=== PATIENT | female | born 1960 | race Two or more races ===

== ENCOUNTER → 2024-12-17 | Outpatient (CLI) | payer MEDICAID, SELFPAY ==
--- NOTE | 2024-12-17 12:57 | XR_ITS ---
EXAMINATION: AP bilateral knees single view TECHNIQUE: AP standing bilateral knees single view Date and time: December 17, 2024 1340 hours INDICATIONS: Bilateral knee pain beginning 2013. FINDINGS: Significant osteopenia. Advanced narrowing lateral joint spaces bilaterally Moderate osteoarthritis medial joint spaces No fractures IMPRESSION: Advanced narrowing lateral joint spaces bilaterally
== END | disposition home or self-care (01) ==
PROVIDERS: PCP Physician Assistant; Referring Provider Orthopaedic Surgery; Visit Provider Orthopaedic Surgery
DX: M25.862 Other specified joint disorders, left knee (principal); M25.861 Other specified joint disorders, right knee
CPT/HCPCS: 73565

== ENCOUNTER 2025-02-20 12:05 | Observation (INO) | payer MEDICAID, SELFPAY ==
--- NOTE | 2025-02-19 11:33 | EKG_ITS ---
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
[2025-02-19 11:45] VITALS: BMI 30.6
[2025-02-19 12:34] LABS: Basophils # (Auto) 0.0 Thou/mm3 (0.0-0.2); Basophils % (Auto) 1 % (0-2.5); Eosinophils # (Auto) 0.3 Thou/mm3 (0.0-0.5); Eosinophils % (Auto) 4 % (0-10); Hematocrit 44.3 % (36.0-46.0); Hemoglobin 14.4 g/dL (12.0-16.0); Immature Granulocytes Auto 0.01 Thou/mm3 (0.00-0.00); Lymphocytes # (Auto) 2.3 Thou/mm3 (1.0-4.8); Lymphocytes % (Auto) 32 % (10-50); Mean Corpuscular HGB Conc 32.5 g/dl (31.0-37.0); Mean Corpuscular Hemoglobin 27.9 pg (25.0-35.0); Mean Corpuscular Volume 86 fL (80-100); Monocytes # (Auto) 0.6 Thou/mm3 (0.0-0.8); Monocytes % (Auto) 9 % (0-12); Neutrophils # (Auto) 3.9 Thou/mm3 (1.8-7.7); Neutrophils % (Auto) 54 % (37-80); Nucleated Red Blood Cell # 0.00 Thou/mm3 (0.00-0.00); Nucleated Red Blood Cell % 0 /100 WBC (0); Platelet Count 272 Thou/mm3 (140-440); RDW Standard Deviation 40.3 fL (36.4-46.3); Red Blood Count 5.17 Miln/mm3 (4.00-5.20); White Blood Count 7.2 Thou/mm3 (3.6-11.0)
[2025-02-19 12:52] LABS: INR 1.1 (0.9-1.3); Partial Thromboplastin Time 30.8 Seconds (22.0-36.0); Prothrombin Time 11.4 Seconds (9.0-12.2)
[2025-02-19 12:57] LABS: Alanine Aminotransferase 19 U/L (10-49); Albumin, Serum 5.0 gm/dL (3.4-4.8); Albumin/Globulin Ratio 2.1 (1.2-2.2); Alkaline Phosphatase 71 U/L (46-116); Anion Gap 9 (7-16); Aspartate Amino Transferase 27 U/L (0-34); BUN/Creatinine Ratio 14 Ratio (12-20); Bilirubin,Total 0.8 mg/dL (0.3-1.2); Blood Urea Nitrogen 10 mg/dL (9-23); Calcium 10.1 mg/dL (8.3-10.6); Calcium (Corrected) 10.1 mg/dL (8.5-10.1); Carbon Dioxide 29.0 mMol/L (20.0-31.0); Chloride 104 mMol/L (98-107); Creatinine (Component) 0.7 mg/dL (0.6-1.3); Estimated Creatinine Clearance 76.4 mL/min (>60); Globulin 2.4 gm/dL (2.3-3.5); Glucose 105 mg/dL (74-106); Osmolality,Calculated 282 (275-295); Potassium 4.2 mMol/L (3.4-5.1); Sodium 142 mMol/L (136-145); Total Protein 7.4 gm/dL (5.7-8.2); eGFR > 60 See Note
[2025-02-20] VITALS (16 sets, daily range): BP systolic 120–161; BP diastolic 71–96; PULSE 64–98; RESP 14–95; TEMP 35.9–36.8; O2SAT 95–100; BMI 30.8
--- NOTE | 2025-02-20 07:35 | SUR.PREOP ---
Patient expressed gratitude for prayer before their procedure.
--- NOTE | 2025-02-20 10:01 | XR_ITS ---
Examination: Knee, right, 3 views Technique: Knee AP, lateral, oblique 3 views Date and time of exam: February 20, 2025, 1025 hours INDICATIONS: Postop knee replacement. FINDINGS: Total right knee arthroplasty. Satisfactory alignment No fractures IMPRESSION: Total right knee arthroplasty with satisfactory alignment
--- NOTE | 2025-02-20 10:02 | ESOP_ITS ---
Date of Procedure 02/20/25 Pre Op Diagnosis Severe DJD right knee joint Post Op Diagnosis Same Procedure Right total knee replacement R persona implant. Femur size 5 narrow Tibial baseplate size C Polyethylene size 10 mm CR Patella size 26 mm Findings Patient has genu valgus deformity. Patient also has significant chondromalacia. The anterior femoral condyle was almost denuded of cartilage so was done with the medial femoral condyle. Patella had significant loss of the cartilage and there is significant osteophyte formation. Procedure Description The patient was given a general anesthesia. The knee block was also given. Once satisfactory anesthesia was achieved a tourniquet was placed on right upper thigh. Intravenous antibiotics was given at the time of anesthesia. The patient was thoroughly prepped and draped. After using Esmarch the tourniquet pressure was raised to 350 mmHg. A skin incision was made 2 inches proximal to the upper pole of patella going as far down as up to the medial aspect of the tibial tuberosity. The skin was raised as a flap on the site. The bleeding vessels were electrocoagulated as a nd when encountered. The quadriceps tendon, medial border of the patella and the patellar tendon along the medial aspect of the tibial tuberosity was incised and reflected. The patellar tendon was reflected as much as needed to yakov the patella. The soft tissue from the upper medial border of the tibia was reflected to correct her genu varum deformity. The knee joint was flexed. The anterior cruciate ligament, medial and lateral meniscus were excised. Next para drill hole was made to the inferior surface of the femur. Following that a swab was placed. A 6?? of abduction was already pu t into it. Following that a cutting block for the inferior cut of the femur was placed and nicely secured with the pins. The swat was removed. The inferior cut of the femur was made and after that the cutting block was removed. Following that a sizer was placed. A decision was made to use size [5] femur implant. 2 drill holes each in 3?? of external rotation were made. The sizer was removed. Size [5] cutting block was placed. Following that anterior, posterior, anterior chamfer and posterior chamfer cuts were made. The cutting block was removed. The knee joint was extended and a 10 mm trial plastic was removed and the intended level of the tibial cut was marked. The knee joint was flexed. With the help of double-pronged the tibia was displaced anteriorly. An extramedullary jig for the cutting block placement of the tibia was placed. The mechanical axis of the zig was parallel to the mechanical axis of the tibia. Following that the tibial cutting block was placed at the desired level and was secured nicely with the help of pins. Following that the tibial cut was made. In this case was posterior cruciate ligament was saved. The cutting block was removed. The spacer was placed and a decision was made to use size [10] polyethylene. The sizing of the tibial baseplate was done and the decision was made to use size [C] tibial baseplate. Following that size [5] trial femur implant was placed in lateralized position and size [C] tibial tibial baseplate along with size [10] plastic was placed in knee joint was flexed and extended quite a few times and tibial baseplate was allowed to sit wherever it wanted to. The markings were made for the tibial baseplate. 2 drill holes were made for the inferior surface of the femur trial implant. The trial implant was removed and tibial baseplate was placed again with the help of pins. The collar was placed and superior hole was drilled. Following that a fin cut was made. The patella was reamed with [26] mm diameter reamer. [12] mm thickness was left. A collar was placed and 3 drill holes were made. All the trial implant was placed and patellar tracking was checked and found to be good. Lateral release was done at this point. The wound was irrigated with antibiotic solution every 4-5 minutes. Now the power lavage antibiotic solution was used. Betadine iodine was also used The knee joint was flexed. The bone were made dry. The cement was mixed. With the help of cement the tibial baseplate was mounted. The excess cement was removed. The femur implant was placed and trial plastic was placed and knee joint was extended. Patella was also mounted with the help of cementing. Excess cement was removed. Osteophytes from the patella was removed at this time. Osteophytes from the femur and tibia were also removed. Once the cement was set the tourniquet pressure was released. The bleeding vessels were electrocoagulated. The trial plastic was removed and 10 mm CR ultra high molecular weight polyethylene was placed. Closure The quadriceps tendon was closed with the help of 1 strata fix Vicryl in continuous fashion. The fat layer was closed with 2 strata fix. The skin was closed with the Momin subcu absorbable suture. Prineo tape was applied. The wound was cleaned with hydrogen proximal solution and a sterile dressing was applied. Patient tolerated procedure very well. Estimated blood loss [25] mL. Prognosis in this case is good. This was taken to the recovery room in good condition. Anesthesia GETA and other Pathology / specimen None Estimated Blood Loss 25 Surgeon Gordon Hale MD Surgical Staff Operation Date: 02/20/25 07:30 Case Staff Anesthesiologist: Siddharth Ospina RNgrinder set up operator thread tool: Harry Wnag
--- NOTE | 2025-02-20 10:31 | ESHP_ITS ---
RE: MELLO DELAROSA : 1960 DATE OF ADMISSION: 02/19/25 Patient came to my office on 02/19/2025 for detailed preop history and physical examination. HISTORY OF PRESENTING COMPLAINT: Patient presented to me earlier with history of pain and swelling of the right knee joint. Pain is quite bad. Patient graded intensity of the pain to be 8-9 out of 10. Unable to walk more than 100 yards. Unable to sleep. Quality of life and activity of daily living is affected. X-ray revealed severe osteoarthritic changes. PAST MEDICAL HISTORY: Patient has a history of high blood pressure. No history of diabetes mellitus, asthma, seizure, chest pain, myocardial infarction, or bleeding disorder. PAST SURGICAL HISTORY: Colonoscopy done by Dr. Devine. Right knee arthroscopy done by me on 09/09/2024. DRUG HISTORY: 1. Atenolol. 2. Ibuprofen. ALLERGIES: NIL KNOWN. FAMILY HISTORY AND SOCIAL HISTORY: Patient denies smoking, drinking. Not working. PHYSICAL EXAMINATION: GENERAL: Normal build lady. VITAL SIGNS: Pulse is 64 per minute. Blood pressure is 140/76. NECK: Soft, supple. No mass felt. Trachea is centrally placed. CARDIOVASCULAR SYSTEM: First and second heart sounds normal. No murmur heard. RESPIRATORY SYSTEM: Bilateral vesicular breath sounds. CHEST: Clear. ABDOMEN: Soft. No mass felt. Bowel sounds present. BREASTS: Not indicated in this case. Patient is advised to see the family physician for regular examination. EXTREMITIES: Right knee examination revealed 1+ swelling and 2+ tenderness. There is genu valgus deformity. Active range of motion 0-110 degrees of flexion. Patellofemoral crepitus is present. Patient walks with limp. NEUROLOGIC: Neurovascularly intact. DIAGNOSTIC STUDIES: X-ray confirmed severe osteoarthritic changes of the right knee joint. ASSESSMENT AND PLAN: Since patient, is symptomatic and arthroscopic findings are also consistent with grade 4 chondromalacia and X-ray confirmed significant osteoarthritic changes, therefore right total knee replacement was discussed and advised. Risks with anesthesia was explained and that includes, but not limited to reaction to anesthetic agents, cardiac arrest, and rarely it might be fatal. Risks with operation include infection and if that happens patient may need further surgical procedure. Other risks include delayed healing, wound dehiscence, etc. Sometimes, rare complications happen and if that happens, that has to be taken care of. There is a risk of loosening of the implant and possible stress fracture proximal and distal to the implant. Patient is fully aware of those risks. No guarantee is given regarding functional outcome and/or pain relief and patient is fully aware of that. Accordingly, surgery is booked for 02/20/2025. Appropriate lab work is done. DT: 10:16:49 TT: 10:30:00 Ref: [id number] - TID: [id number]
--- NOTE | 2025-02-20 10:33 | SUR.PHASEI ---
1012: Pt received in [facility] via hospital bed. Report from Nicolette BROCK and Dr. Ospina. Pt obtunded. Oral airway in place. Resp even, unlabored. VS stable. Dressing to right knee dry, clean, intact. Bilateral pedal pulses strong, regular. 1015: Oral airway dc'd. Resp even, unlabored. 1025: Radiology here to take ordered knee x-rays. Anesthesia at bedside medicating pt for pain. 1035: X-rays complete. Pt tolerated procedure with no complaints voiced. VS stable. Dressing remains dry, clean, intact.
[2025-02-20] MEDS: MORPHINE SULF INJ 4 MG/ML VIAL IVP (10:44)
[2025-02-20] MEDS: ONDANSETRON INJ 2 MG/ML INJ 2 ML 4 MG IVP (11:52)
--- NOTE | 2025-02-20 12:12 | SUR.PHASEII ---
1044: Pt awake with c/o pain to right knee. Rates pain level 8/10. Resp even, unlabored. VS stable. Pain medication given per order. 1115: Pt has been resting with no further c/o pain. Rates pain level 3/10. Resp even, unlabored. VS stable. Dressing remains dry, clean, intact. Bilateral pedal pulses strong, regular. 1152: Received room assignment. While preparing pt for transfer she became having c/o nausea. Zofran given per order at this time. Report to Chani BROCK third floor. Pt transferred to 379 in stable condition.
[2025-02-20] MEDS: ceFAZolin/D5W 1 GM IVPB 1 GM/50 ML BAG IV (16:51)
[2025-02-20] MEDS: ONDANSETRON INJ 2 MG/ML INJ 2 ML 4 MG IV (17:51)
[2025-02-21] VITALS: BP 164/79; PULSE 96; RESP 16; TEMP 36.8; O2SAT 97
[2025-02-21] MEDS: ceFAZolin/D5W 1 GM IVPB 1 GM/50 ML BAG IV (00:19)
[2025-02-21] MEDS: ONDANSETRON INJ 2 MG/ML INJ 2 ML 4 MG IV ×2 (00:25→07:21)
[2025-02-21 04:00] VITALS: BP 138/74; PULSE 96; RESP 20; TEMP 37.4; O2SAT 96
[2025-02-21] MEDS: MORPHINE SULF INJ 4 MG/ML VIAL IVP (04:51)
[2025-02-21 05:42] LABS: Basophils # (Auto) 0.0 Thou/mm3 (0.0-0.2); Basophils % (Auto) 0 % (0-2.5); Eosinophils # (Auto) 0.0 Thou/mm3 (0.0-0.5); Eosinophils % (Auto) 0 % (0-10); Hematocrit 37.1 % (36.0-46.0); Hemoglobin 12.5 g/dL (12.0-16.0); Immature Granulocytes Auto 0.03 Thou/mm3 (0.00-0.00); Lymphocytes # (Auto) 1.6 Thou/mm3 (1.0-4.8); Lymphocytes % (Auto) 14 % (10-50); Mean Corpuscular HGB Conc 33.7 g/dl (31.0-37.0); Mean Corpuscular Hemoglobin 28.3 pg (25.0-35.0); Mean Corpuscular Volume 84 fL (80-100); Monocytes # (Auto) 1.4 Thou/mm3 (0.0-0.8); Monocytes % (Auto) 12 % (0-12); Neutrophils # (Auto) 8.4 Thou/mm3 (1.8-7.7); Neutrophils % (Auto) 73 % (37-80); Nucleated Red Blood Cell # 0.00 Thou/mm3 (0.00-0.00); Nucleated Red Blood Cell % 0 /100 WBC (0); Platelet Count 195 Thou/mm3 (140-440); RDW Standard Deviation 39.0 fL (36.4-46.3); Red Blood Count 4.41 Miln/mm3 (4.00-5.20); White Blood Count 11.5 Thou/mm3 (3.6-11.0)
[2025-02-21 08:00] VITALS: BP 166/85; PULSE 96; RESP 18; TEMP 36.3; O2SAT 97
[2025-02-21 09:44] VITALS: PULSE 98; RESP 20; RESP 95
--- NOTE | 2025-02-21 10:30 | PC.NURSE ---
Patient to be discharged home. One-time order of oxycodone/acetaminophen 5mg/325mg administered for severe pain per DR. Sullivan. All medications and required medical equipment were sent to the patients home prior to surgery.
--- NOTE | 2025-02-21 10:56 | PC.NURSE ---
Patient planned for discharge at 1300. Patient reports spouse is unable to arrive for pick-up before scheduled discharge time.
[2025-02-21 12:00] VITALS: BP 152/80; PULSE 94; RESP 18; TEMP 36.6; O2SAT 96
--- NOTE | 2025-02-27 13:48 | PD.ANESPROG ---
Documentation for date of: 02/27/25 POST ANESTHESIA NOTE: Patient had GETA and R femoral block for R TKA on 02/20/25. I just called and spoke with her on the phone via storage wharfage clerk and she reported having PONV til next day. In my pre-op, she had denied any prior problems with anesthesia. Otherwise she denied any problems from anesthesia. I educated her to discussed her PONV with her next anesthesia provider should she have any further surgery and she had no further questions for me. Siddharth Ospina MD Anesthesia Progress Note Progress Note Most recent Vital Signs: Last Vital Signs Temp 97.9 F 02/21/25 12:00 Pulse 94 02/21/25 12:00 Resp 18 02/21/25 12:00 BP 152/80 H 02/21/25 12:00 Pulse Ox 96 02/21/25 12:00 O2 Del Method Room Air 02/21/25 12:00 O2 Flow Rate 2 02/20/25 11:40
== END 2025-02-21 13:40 | disposition home or self-care (01) ==
LOC: S3SX 13:26
PROVIDERS: Anesthesiology; Admitting Provider Orthopaedic Surgery; PCP Physician Assistant; Referring Provider Orthopaedic Surgery; Visit Provider Orthopaedic Surgery
PROC: (CPT 27447; principal; 2025-02-20 07:30)
DX: M17.11 Unilateral primary osteoarthritis, right knee (principal); M21.061 Valgus deformity, not elsewhere classified, right knee; M25.761 Osteophyte, right knee; M94.261 Chondromalacia, right knee; Z01.810 Encounter for preprocedural cardiovascular examination
CPT/HCPCS: 27447; 36415; 73562; 80053; 85025; 85610; 85730; 86850; 86900; 86901; 86923; 87081; 93005; 93225; 96365; 96375; 96376; 97163; A4217; A4649; C1713; C1776; G0378; J0131; J0689; J0690; J2250; J2270; J2405; J2704; J2795; J3010; J3490; A9270; J7999